=== PATIENT | male | born 1995 | race American Indian/Alaskan Native ===

== ENCOUNTER 2020-10-27 12:00 | Emergency (ER) | payer SELFPAY ==
[2020-10-27 12:06] VITALS: BP 132/82
--- NOTE | 2020-10-27 12:12 | Event Note ---
ED Screening Note Date of service: 10/27/20 Time: 12:11 ED Screening Note: Patient complains of left eye pain, blurry vision, photophobia, foreign body sensation Denies injury to the eye This initial assessment/diagnostic orders/clinical plan/treatment(s) is/are subject to change based on patients health status, clinical progression and re- assessment by fellow clinical providers in the ED. Further treatment and workup at subsequent clinical providers discretion. Patient/guardian urged not to elope from the ED as their condition may be serious if not clinically assessed and managed. Initial orders include: Further eval in [facility]
[2020-10-27] MEDS ORDERED: FLUORESCEIN 1 MG STRIP OP ONE (12:22)
[2020-10-27] MEDS ORDERED: TETRACAINE 0.5% OPHTH SOLN 4ML OU ONE (12:23)
[2020-10-27] MEDS ORDERED: METOCLOPRAMIDE 10 MG/2 ML INJ IV ONE (12:55)
[2020-10-27] MEDS ORDERED: diphenhydrAMINE 50 MG/ML VIAL IV ONE (12:55)
[2020-10-27] MEDS ORDERED: SODIUM CHLORIDE 0.9% 1000 ML 1,000 ML IV ONE (12:55)
[2020-10-27 13:31] LABS: Basophils % (Auto) 0.7 % (0.0-1.8); Eosinophils % (Auto) 0.9 % (0.0-4.3); Hematocrit 43.9 % (35.5-45.6); Hemoglobin 14.2 gm/dl (11.8-15.2); Lymphocytes % (Auto) 42.9 % (13.4-35.0); Mean Corpuscular HGB Conc 33 % (32-34); Mean Corpuscular Volume 91 fl (84-94); Monocytes # (Auto) 0.3 K/mm3 (0.0-0.8); Monocytes % (Auto) 7.5 % (0.0-7.3); Platelet Count 186 K/mm3 (140-440); Red Blood Count 4.83 M/mm3 (3.65-5.03); Red Cell Distribution Width 12.5 % (13.2-15.2)
--- NOTE | 2020-10-27 13:46 | Emergency Department Report ---
ED General Adult HPI - General Chief complaint: Eye Problems Stated complaint: LT EYE PAIN Time Seen by Provider: 10/27/20 12:10 Source: patient Mode of arrival: Ambulatory Limitations: No Limitations - History of Present Illness Initial comments: Is a pleasant 25-year-old male presents the emergency department chief complaint of left eye pain, blurry vision and a left retro-orbital headache over the past 4 days. Patient denies any head injury. He denies any loss of vision or double vision. He reports a history of headaches but this headache is different. He denies any associated fever, chills, night sweats, headache, dizziness, nausea, vomiting, diarrhea, chest pain, shortness of breath. He reports the pain is throbbing and rated as a 7 out of 10 in severity. He feels as if there is something in the eye. His pain is aggravated by looking left or right. He denies any known past medical history, current medication use or known allergies to medications. Severity scale (0 -10): 7 - Related Data Previous Rx's Medication Instructions Recorded Last Taken Type Butalb/Acetaminophen/Caffeine 1 cap PO Q6HR PRN #9 cap 10/27/20 Unknown Rx [Fioricet 50-300-40 mg CAP] Allergies Allergy/AdvReac Type Severity Reaction Status Date / Time No Known Allergies Allergy Unverified 10/27/20 12:01 ED Review of Systems ROS: Stated complaint: LT EYE PAIN Other details as noted in HPI Comment: All other systems reviewed and negative Constitutional: denies: chills, fever Eyes: as per HPI, eye pain, vision change. denies: eye discharge ENT: denies: ear pain, throat pain Respiratory: denies: cough, shortness of breath, wheezing Cardiovascular: denies: chest pain, palpitations Endocrine: no symptoms reported Gastrointestinal: denies: abdominal pain, nausea, diarrhea Genitourinary: denies: urgency, dysuria Musculoskeletal: denies: back pain, joint swelling, arthralgia Skin: denies: rash, lesions Neurological: as per HPI, headache. denies: weakness, paresthesias Psychiatric: denies: anxiety, depression Hematological/Lymphatic: denies: easy bleeding, easy bruising ED Past Medical Hx - Past Medical History Previous Medical History?: No - Surgical History Past Surgical History?: No - Social History Smoking Status: Never Smoker - Medications Home Medications: Home Medications Medication Instructions Recorded Confirmed Last Taken Type Butalb/Acetaminophen/Caffeine 1 cap PO Q6HR PRN #9 cap 10/27/20 Unknown Rx [Fioricet 50-300-40 mg CAP] ED Physical Exam - General Limitations: No Limitations General appearance: alert, in no apparent distress - Head Head exam: Present: atraumatic, normocephalic - Eye Eye exam: Present: normal appearance, PERRL, EOMI Pupils: Present: normal accommodation - ENT ENT exam: Present: normal exam, normal orophraynx, mucous membranes moist, TM's normal bilaterally - Neck Neck exam: Present: normal inspection, full ROM. Absent: tenderness, meningismus - Respiratory Respiratory exam: Present: normal lung sounds bilaterally. Absent: respiratory distress, wheezes, rales, rhonchi, stridor - Cardiovascular Cardiovascular Exam: Present: regular rate, normal rhythm. Absent: systolic murmur, diastolic murmur, rubs, gallop - GI/Abdominal GI/Abdominal exam: Present: soft, normal bowel sounds. Absent: distended, tenderness, guarding, rebound, rigid - Rectal Rectal exam: Present: deferred - Extremities Exam Extremities exam: Present: normal inspection, full ROM, normal capillary refill. Absent: tenderness - Back Exam Back exam: Present: normal inspection, full ROM. Absent: tenderness, CVA tenderness (R), CVA tenderness (L), muscle spasm - Neurological Exam Neurological exam: Present: alert, oriented X3, CN II-XII intact, normal gait, other (Normal finger-nose and [id number], normal gait without ataxia. Normal gross visual [place]field.) - Psychiatric Psychiatric exam: Present: normal affect, normal mood - Skin Skin exam: Present: warm, dry, intact, normal color. Absent: rash ED Course Vital Signs 10/27/20 12:01 Temperature 98.5 F Pulse Rate 84 Respiratory 14 Rate Blood Pressure 132/82 [Right] O2 Sat by Pulse 98 Oximetry - Reevaluation(s) Reevaluation #1: 10/27/20 13:46 Fluorescein stain at the bedside under Tena lamp showed no obvious uptake. No lesions. The extraocular movements are unremarkable. His neurologic exam was unremarkable. Patient was given IV fluids, Reglan and Benadryl for migraine cocktail and he reports his symptoms had resolved. CAT scan was ordered due to this being a changing headache. ED Medical Decision Making - Lab Data Result diagrams: 10/27/20 13:13 10/27/20 13:13 Lab Results 10/27/20 10/27/20 Range/Units 13:13 13:13 WBC 4.7 (4.5-11.0) K/mm3 RBC 4.83 (3.65-5.03) M/mm3 Hgb 14.2 (11.8-15.2) gm/dl Hct 43.9 (35.5-45.6) % MCV 91 (84-94) fl MCH 30 (28-32) pg MCHC 33 (32-34) % RDW 12.5 L (13.2-15.2) % Plt Count 186 (140-440) K/mm3 Lymph % (Auto) 42.9 H (13.4-35.0) % [place] % (Auto) 7.5 H (0.0-7.3) % Eos % (Auto) 0.9 (0.0-4.3) % Baso % (Auto) 0.7 (0.0-1.8) % Lymph # (Auto) 2.0 (1.2-5.4) K/mm3 [place] # (Auto) 0.3 (0.0-0.8) K/mm3 Eos # (Auto) 0.0 (0.0-0.4) K/mm3 Baso # (Auto) 0.0 (0.0-0.1) K/mm3 Seg Neutrophils % 48.0 (40.0-70.0) % Seg Neutrophils # 2.3 (1.8-7.7) K/mm3 Sodium 138 (137-145) mmol/L Potassium 4.2 (3.6-5.0) mmol/L Chloride 103.9 (98-107) mmol/L Carbon Dioxide 26 (22-30) mmol/L Anion Gap 12 mmol/L BUN 8 L (9-20) mg/dL Creatinine 0.9 (0.8-1.3) mg/dL Estimated GFR > 60 ml/min BUN/Creatinine Ratio 9 % Glucose 87 (75-100) mg/dL Calcium 9.3 (8.4-10.2) mg/dL Total Bilirubin 1.00 (0.1-1.2) mg/dL AST 15 (5-40) units/L ALT 14 (7-56) units/L Alkaline Phosphatase 66 (35-129) units/L Total Protein 7.5 (6.3-8.2) g/dL Albumin 4.5 (3.9-5) g/dL Albumin/Globulin Ratio 1.5 % - Radiology Data Radiology results: report reviewed, image reviewed Cat Scan Report Signed Patient: ENRICO SOMMERS II MR#: [id number] : 1995 Acct:[id number] Age/Sex: 25 / M ADM Date: 10/27/20 Loc: ED Attending Dr: Ordering Physician: LACEY DELEON Date of Service: 10/27/20 Procedure(s): CT head/brain wo con Accession Number(s): [id number] cc: LACEY DELEON NONENHANCED CT SCAN OF THE HEAD: INDICATION / CLINICAL INFORMATION: 25 years Male; left sided headache, severe. TECHNIQUE: Routine CT head without contrast. All CT scans at this location are performed using CT dose reduction for ALARA by means of automated exposure control. COMPARISON: None. FINDINGS: BRAIN / INTRACRANIAL CONTENTS: No acute hemorrhage, mass effect, midline shift, hydrocephalus, or acute, large territorial infarct. No chronic infarct or focal atrophy. Normal brain volume and ventricular/sulcal size for age. No significant white matter abnormality. CRANIOCERVICAL JUNCTION: No significant abnormality. ORBITS: No significant abnormality of visualized orbits. SINUSES / MASTOIDS: No significant abnormality of the visualized paranasal sinuses or mastoid air cells. ADDITIONAL FINDINGS: None. IMPRESSION: Normal nonenhanced CT scan of the head Signer Name: Isrrael Car MD Signed: 10/27/2020 3:03 PM Workstation Name: [id number] Transcribed By: BS Dictated By: Isrrael Gould MD Electronically Authenticated By: Isrrael Gould MD Signed Date/Time: 10/27/20 1503 DD/ 1501 - Medical Decision Making Patient nontoxic in no acute distress. Vital signs are stable. Patient had no temporal tenderness making temporal arteritis unlikely. CAT scan was negative for acute intracranial abnormality. This gradual onset headache making subarachnoid hemorrhage unlikely. He had no focal neurologic deficits making CVA or TIA unlikely. He complained of a foreign body sensation the left eye with some blurry vision. Fluorescein stain was unremarkable. Labs are unremarkable. Suspect this could be an ocular migraine versus a cluster headache. Patient reports after IV fluids, Reglan and Benadryl his symptoms have improved dramatically and he would like to go home. I did highly recommend that he see an eye doctor soon as possible and will give him follow-up. I recommended he return the [facility] merely if he develops any change or worsening symptoms. He verbalized understanding these instructions and all of his questions were answered. - Differential Diagnosis Cluster headache, ocular migraine, Graves' disease, corneal abrasion Critical care attestation.: If time is entered above; I have spent that time in minutes in the direct care of this critically ill patient, excluding procedure time. ED Disposition Clinical Impression: Acute headache Qualifiers: Headache type: unspecified Intractability: not intractable Qualified Code(s): R51.9 - Headache, unspecified Disposition: DC-01 TO HOME OR SELFCARE Is pt being admited?: No Condition: Stable Instructions: General Headache Without Cause, [id number] Prescriptions: Butalb/Acetaminophen/Caffeine [Fioricet 50-300-40 mg CAP] 1 cap PO Q6HR PRN #9 cap PRN Reason: Headache Referrals: PRIMARY CAREMD [Primary Care Provider] - 3-5 Days ABIDA MEDINA MD [Staff Physician] - 3-5 Days Forms: Work/School Release Form(ED)
[2020-10-27 13:58] LABS: Alanine Aminotransferase 14 units/L (7-56); Albumin 4.5 g/dL (3.9-5); BUN/Creatinine Ratio 9; Blood Urea Nitrogen 8 mg/dL (9-20); Calcium 9.3 mg/dL (8.4-10.2); Hemolysis Index 3
--- NOTE | 2020-10-27 15:07 | Cat Scan Report ---
NONENHANCED CT SCAN OF THE HEAD: INDICATION / CLINICAL INFORMATION: 25 years Male; left sided headache, severe. TECHNIQUE: Routine CT head without contrast. All CT scans at this location are performed using CT dos e reduction for ALARA by means of automated exposure control. COMPARISON: None. FINDINGS: BRAIN / INTRACRANIAL CONTENTS: No acute hemorrhage, mass effect, midline shift, hydrocephalus, or acu te, large territorial infarct. No chronic infarct or focal atrophy. Normal brain volume and ventricul ar/sulcal size for age. No significant white matter abnormality. CRANIOCERVICAL JUNCTION: No significant abnormality. ORBITS: No significant abnormality of visualized orbits. SINUSES / MASTOIDS: No significant abnormality of the visualized paranasal sinuses or mastoid air corbin ls. ADDITIONAL FINDINGS: None. IMPRESSION: Normal nonenhanced CT scan of the head Signer Name: Isrrael Car MD Signed: 10/27/2020 3:03 PM Workstation Name: [id number]
== END 2020-10-27 16:22 | disposition home or self-care (01) ==
LOC: ED 12:00
DX: R51.9 Headache, unspecified (principal); Z79.899 Other long term (current) drug therapy
CPT/HCPCS: 36415; 70450; 80053; 85025; 96361; 96374; 96375; 99284; J1200; J2765; J7030

== ENCOUNTER 2020-10-31 09:15 | Emergency (ER) | payer SELFPAY ==
[2020-10-31 09:21] VITALS: BP 138/70
--- NOTE | 2020-10-31 09:48 | Emergency Department Report ---
ED Eye Problem HPI - General Chief complaint: Eye Problems Stated complaint: BLURRY VISION IN LT EYE Time Seen by Provider: 10/31/20 09:26 Source: patient Mode of arrival: Ambulatory Limitations: No Limitations - History of Present Illness Initial comments: This is a pleasant 25-year-old male who presents the emergency department as a reevaluation with persistent left eye blurriness. He was unable to follow-up with the application integration specialist. He was seen 4 days ago for the same complaint. He denies any known injuries. He reports he is supposed to wear glasses but is not compliant with that. He states his right eye vision is normal. He denies any loss of vision, double vision, weakness, facial droop, headache, nausea, vomiting, diarrhea, chest pain, shortness of breath or any other associated symptoms. He denies any known past medical history, current medication use or known allergies to medications. - Related Data Previous Rx's Medication Instructions Recorded Last Taken Type Butalb/Acetaminophen/Caffeine 1 cap PO Q6HR PRN #9 cap 10/27/20 Unknown Rx [Fioricet 50-300-40 mg CAP] Erythromycin [Erythromycin Ophth 10 applic OP Q6HR #1 tube 10/31/20 Unknown Rx Oint] Allergies Allergy/AdvReac Type Severity Reaction Status Date / Time No Known Allergies Allergy Unverified 10/27/20 12:01 ED Review of Systems ROS: Stated complaint: BLURRY VISION IN LT EYE Other details as noted in HPI Comment: All other systems reviewed and negative Constitutional: denies: chills, fever Eyes: as per HPI, vision change. denies: eye pain, eye discharge ENT: denies: ear pain, throat pain Respiratory: denies: cough, shortness of breath, wheezing Cardiovascular: denies: chest pain, palpitations Endocrine: no symptoms reported Gastrointestinal: denies: abdominal pain, nausea, diarrhea Genitourinary: denies: urgency, dysuria Musculoskeletal: denies: back pain, joint swelling, arthralgia Skin: denies: rash, lesions Neurological: denies: headache, weakness, paresthesias Psychiatric: denies: anxiety, depression Hematological/Lymphatic: denies: easy bleeding, easy bruising ED Past Medical Hx - Past Medical History Previous Medical History?: No - Surgical History Past Surgical History?: No - Social History Smoking Status: Never Smoker - Medications Home Medications: Home Medications Medication Instructions Recorded Confirmed Last Taken Type Butalb/Acetaminophen/Caffeine 1 cap PO Q6HR PRN #9 cap 10/27/20 Unknown Rx [Fioricet 50-300-40 mg CAP] Erythromycin [Erythromycin Ophth 10 applic OP Q6HR #1 tube 10/31/20 Unknown Rx Oint] ED Physical Exam - General Limitations: No Limitations General appearance: alert, in no apparent distress - Head Head exam: Present: atraumatic, normocephalic - Eye Eye exam: Present: normal appearance, PERRL, EOMI, other (There is mild conjunctival injection to the left eye.). Absent: periorbital swelling, periorbital tenderness Pupils: Present: normal accommodation - ENT ENT exam: Present: normal exam, normal orophraynx, mucous membranes moist, TM's normal bilaterally - Neck Neck exam: Present: normal inspection, full ROM. Absent: tenderness, meningismus - Respiratory Respiratory exam: Present: normal lung sounds bilaterally. Absent: respiratory distress, wheezes, rales, rhonchi, stridor, chest wall tenderness - Cardiovascular Cardiovascular Exam: Present: regular rate, normal rhythm, normal heart sounds. Absent: systolic murmur, diastolic murmur, rubs, gallop - GI/Abdominal GI/Abdominal exam: Present: soft, normal bowel sounds. Absent: distended, tenderness, guarding, rebound, rigid - Rectal Rectal exam: Present: deferred - Extremities Exam Extremities exam: Present: normal inspection, full ROM, pedal edema. Absent: tenderness, calf tenderness - Back Exam Back exam: Present: normal inspection, full ROM. Absent: tenderness, CVA tenderness (R), CVA tenderness (L) - Neurological Exam Neurological exam: Present: alert, oriented X3, normal gait - Psychiatric Psychiatric exam: Present: normal affect, normal mood - Skin Skin exam: Present: warm, dry, intact, normal color. Absent: rash ED Course Vital Signs 10/31/20 09:19 Temperature 98 F Pulse Rate 62 Respiratory 16 Rate Blood Pressure 138/70 [Right] O2 Sat by Pulse 96 Oximetry ED Medical Decision Making - Medical Decision Making Patient is nontoxic in no acute distress. He return to the emergency department with some persistent blurry vision in the left eye. He has some mild erythema to the left eye. His pupils are equal round reactive to light bilaterally and react accommodation. I did a Fabian-Pen examination and his intraocular pressure was 32 on the left which is slightly elevated. He did not have a fixed dilated pupil and overall I have a low suspicion for acute angle-closure glaucoma. A fluorescein stain was performed and there was no uptake. There was normal extraocular movements. Normal neurologic exam. Funduscopic exam although limited without dilation appeared fairly normal. I reiterated the importance of ophthalmology follow-up SORAYA. I did discuss with attending physician who came and evaluated the patient at bedside and agreed this is likely conjunctivitis and recommended antibiotics and ophthalmology follow-up. Patient was agreeable to this plan and all his questions were answered. - Differential Diagnosis Conjunctivitis, glaucoma, ocular migraine Critical care attestation.: If time is entered above; I have spent that time in minutes in the direct care of this critically ill patient, excluding procedure time. ED Disposition Clinical Impression: Conjunctivitis Qualifiers: Conjunctivitis type: acute Acute conjunctivitis type: bacterial Laterality: left Qualified Code(s): H10.32 - Unspecified acute conjunctivitis, left eye Disposition: DC- TO HOME OR SELFCARE Is pt being admited?: No Condition: Stable Instructions: How to Use Eye Drops and Eye Ointments Prescriptions: Erythromycin [Erythromycin Ophth Oint] 10 applic OP Q6HR #1 tube Referrals: ABIDA MEDINA MD [Staff Physician] - 3-5 Days Forms: Work/School Release Form(ED) Time of Disposition: 10:18
== END 2020-10-31 10:24 | disposition home or self-care (01) ==
LOC: ED 09:15
DX: H10.32 Unspecified acute conjunctivitis, left eye (principal)
CPT/HCPCS: 99282

== ENCOUNTER 2021-04-30 21:36 | Emergency (ER) | payer SELFPAY ==
[2021-05-01] VITALS: BP 122/70
== END 2021-05-01 | disposition home or self-care (01) ==
LOC: ED 21:36
DX: S56.416A Strain of extensor muscle, fascia and tendon of left ring finger at forearm level, initial encounter (principal); W21.01XA Struck by football, initial encounter; Y93.61 Activity, american tackle football; Y92.89 Other specified places as the place of occurrence of the external cause; Y99.8 Other external cause status
CPT/HCPCS: 99283

== ENCOUNTER 2021-05-24 21:13 | Emergency (ER) | payer SELFPAY ==
[2021-05-24 22:30] VITALS: BP 132/73
== END 2021-05-25 01:25 | disposition left against medical advice (07) ==
LOC: ED 21:13
DX: S01.312A Laceration without foreign body of left ear, initial encounter (principal); Z53.21 Procedure and treatment not carried out due to patient leaving prior to being seen by health care provider; W22.8XXA Striking against or struck by other objects, initial encounter; Y93.89 Activity, other specified; Y92.89 Other specified places as the place of occurrence of the external cause; Y99.8 Other external cause status